=== PATIENT | male | born 1995 | race Caucasian/White ===

== ENCOUNTER 2021-04-14 12:36 | Emergency (ER) | payer OTHER ==
[2021-04-14 13:06] VITALS: BP 121/75; PULSE 69; TEMP 97.7; BMI 29.0
[2021-04-14] MEDS ORDERED: KETOROLAC TROMETHAMINE 30 MG/1 ML VIAL IM ONE (13:23)
[2021-04-14] MEDS ORDERED: KETOROLAC TROMETHAMINE 30 MG/1 ML VIAL ONE (13:25)
== END 2021-04-14 13:30 | disposition home or self-care (01) ==
LOC: JERFT 12:36
PROC: 3E0233Z Introduction of Anti-inflammatory into Muscle, Percutaneous Approach (ICD-10-PCS; principal; 2021-04-14)
DX: M54.5 Low back pain (principal)
CPT/HCPCS: 99284-25

== ENCOUNTER 2023-02-09 02:08 | Emergency (ER) | payer OTHER ==
[2023-02-09 02:18] VITALS: BP 116/75; PULSE 92; RESP 18; TEMP 98; BMI 29.0
[2023-02-09] MEDS ORDERED: IBUPROFEN 600 MG TABLET (FP) PO ONE ×2 (02:42→02:48)
[2023-02-09] MEDS ORDERED: LIDOCAINE 5% TOPICAL PATCH TP ONE (02:42)
[2023-02-09] MEDS ORDERED: LIDOCAINE 5% TOPICAL PATCH ONE (02:48)
[2023-02-09] MEDS ORDERED: LIDOCAINE PATCH REMOVAL MC ONE (15:00)
== END 2023-02-09 03:22 | disposition home or self-care (01) ==
LOC: JER 02:08
DX: M54.50 Low back pain, unspecified (principal)
CPT/HCPCS: 99283-25